=== PATIENT | female | born 1955 | race Caucasian/White ===

== ENCOUNTER 2021-06-24 05:28 | Day surgery (SDC) | payer OTHER ==
[~2021-06-24 05:28] MED LIST: CRESTOR5 MG PO; CYTOMEL25 MCG PO; NABUMETONE500 MG PO; PERCOCET 5/3251 TAB PO; SYNTHROID75 MCG PO; TOPROL XL50 M1 PO; [UNRECOGNIZED DRUG - OTHER] PO
== END 2021-06-24 14:10 | disposition home or self-care (01) ==
LOC: CIR.AMB 05:28
PROVIDERS: ATTEND Specialist
DX: N85.8 Other specified noninflammatory disorders of uterus (principal); Z88.0 Allergy status to penicillin; Z88.8 Allergy status to other drugs, medicaments and biological substances; J45.909 Unspecified asthma, uncomplicated; Z86.16 Personal history of COVID-19